=== PATIENT | female | born 1995 | race American Indian/Alaskan Native ===

== ENCOUNTER 2019-02-15 19:25 | Emergency (ER) | payer OTHER ==
--- NOTE | 2019-02-15 19:39 | Emergency Department Report ---
Blank Doc - Documentation Documentation: This is a 24-year-old female that presents with pelvic pain and vaginal discha rge. This initial assessment/diagnostic orders/clinical plan/treatment(s) is/are subject to change based on patient's health status, clinical progression and re- assessment by fellow clinical providers in the ED. Further treatment and workup at subsequent clinical providers discretion. Patient/guardians urged not to elope from the ED as their condition may be serious if not clinically assessed a nd managed. Initial orders include: 1- Patient sent to [facility] for further evaluation and treatment 2- UA 3- wet prep/GC
[2019-02-15 21:23] LABS: HCG Qualitative,Urine Negative (Negative)
[2019-02-15 21:27] LABS: Bilirubin,Urine NEG (Negative); Blood,Urine NEG (Negative); Color,Urine Yellow (Yellow); Mucus,Urine FEW /HPF; Protein,Urine <15 mg/dL mg/dL (Negative); Urobilinogen,Urine < 2.0 mg/dL (<2.0)
--- NOTE | 2019-02-15 23:26 | Emergency Department Report ---
ED Abdominal Pain HPI - General Chief Complaint: Abdominal Pain Stated Complaint: ABD AND UTERUS PAIN Time Seen by Provider: 02/15/19 19:38 Source: patient Mode of arrival: Ambulatory Limitations: No Limitations - History of Present Illness Initial Comments: This is a 24-year-old -[place] female who presents to the emergency room with pelvic pain for one week. She reports pain is sharp and intermittent. She also reports a sore to bikini line for several weeks. States she was seen at [facility] and so it would go away. It is painful and burst once but returned. She also reports a vaginal discharge. She denies urinary frequency, urgency, dysuria, nausea, vomiting, diarrhea or back pain. MD Complaint: abdominal pain Onset/Timin -: week(s) Location: suprapubic Radiation: none Migration to: no migration Severity: mild Severity scale (0 -10): 4 Quality: sharp Consistency: intermittent Improves With: nothing Worsens With: nothing Associated Symptoms: other (discharge). denies: nausea, vomiting, diarrhea, fever, chills, constipation, dysuria, hematemesis, hematochezia, melena, hematuria, anorexia, syncope - Related Data Previous Rx's Medication Instructions Recorded Last Taken Type Nitrofurantoin Gem/M-Cryst 100 mg PO Q12HR 5 Days capsule 06/15/14 06/14/14 08:00 Rx [Macrobid] 1 tab Ferrous Sulfate [Feosol 325 MG tab] 325 mg PO BID #60 tablet 01/12/15 Unknown Rx HYDROcodone/APAP 5-325 [[place] 1 each PO Q6HR PRN #30 tablet 01/12/15 Unknown Rx 5/325] Ibuprofen [Motrin] 800 mg PO Q8H PRN #30 tablet 01/12/15 Unknown Rx [id number]/Iron Fum/Folic/Docusate 1 each PO QDAY #30 tablet 01/12/15 Unknown Rx [ 19 Tablet] cephALEXin [Keflex] 500 mg PO Q8HR #15 cap 05/09/15 Unknown Rx Valacyclovir HCl [Valtrex] 1,000 mg PO BID 10 Days #40 tablet 02/16/19 Unknown Rx metroNIDAZOLE [Flagyl TAB] 500 mg PO Q12HR #14 tab 02/16/19 Unknown Rx Allergies Allergy/AdvReac Type Severity Reaction Status Date / Time No Known Allergies Allergy Verified 06/15/14 16:45 ED Review of Systems ROS: Stated complaint: ABD AND UTERUS PAIN Other details as noted in HPI Constitutional: denies: chills, fever Respiratory: denies: cough, shortness of breath, wheezing Cardiovascular: denies: chest pain, palpitations Gastrointestinal: abdominal pain. denies: nausea, diarrhea Genitourinary: discharge. denies: urgency, dysuria Musculoskeletal: denies: back pain, joint swelling, arthralgia Skin: rash Neurological: denies: headache, weakness, paresthesias Psychiatric: denies: anxiety, depression ED Past Medical Hx - Past Medical History Previous Medical History?: Yes Hx Hypertension: No Hx Congestive Heart Failure: No Hx Diabetes: No Hx Deep Vein Thrombosis: No Hx Renal Disease: No Hx Sickle Cell Disease: No Hx Seizures: No Hx Asthma: Yes Hx COPD: No Hx HIV: No - Surgical History Past Surgical History?: Yes Additional Surgical History: x 1 - Social History Smoking Status: Current Every Day Smoker Substance Use Type: Alcohol - Medications Home Medications: Home Medications Medication Instructions Recorded Confirmed Last Taken Type Nitrofurantoin Gem/M-Cryst 100 mg PO Q12HR 5 Days capsule 06/15/14 01/12/15 06/14/14 08:00 Rx [Macrobid] 1 tab Ferrous Sulfate [Feosol 325 MG tab] 325 mg PO BID #60 tablet 01/12/15 Unknown Rx HYDROcodone/APAP 5-325 [[place] 1 each PO Q6HR PRN #30 tablet 01/12/15 Unknown Rx 5/325] Ibuprofen [Motrin] 800 mg PO Q8H PRN #30 tablet 01/12/15 Unknown Rx [id number]/Iron Fum/Folic/Docusate 1 each PO QDAY #30 tablet 01/12/15 Unknown Rx [ 19 Tablet] cephALEXin [Keflex] 500 mg PO Q8HR #15 cap 05/09/15 Unknown Rx Valacyclovir HCl [Valtrex] 1,000 mg PO BID 10 Days #40 tablet 02/16/19 Unknown Rx metroNIDAZOLE [Flagyl TAB] 500 mg PO Q12HR #14 tab 02/16/19 Unknown Rx ED Physical Exam - General Limitations: No Limitations General appearance: alert, in no apparent distress, obese - Respiratory Respiratory exam: Present: normal lung sounds bilaterally. Absent: respiratory distress - Cardiovascular Cardiovascular Exam: Present: regular rate, normal rhythm. Absent: systolic murmur, diastolic murmur, rubs, gallop - GI/Abdominal GI/Abdominal exam: Present: soft, normal bowel sounds. Absent: distended, tenderness, guarding, rebound, rigid, organomegaly, mass - External exam: Present: lesions (vesicular lesions to the right side of the mons pubis and right buttocks, tenderness). Absent: erythema, swelling, lacerations, ecchymosis, bleeding Speculum exam: Present: vaginal discharge (malodorous yellowish discharge). Absent: erythema, cervical discharge, vaginal bleeding, foreign body, tissue, laceration Bi-manual exam: Present: normal bi-manual exam - Back Exam Back exam: Absent: CVA tenderness (R), CVA tenderness (L) - Neurological Exam Neurological exam: Present: alert, oriented X3 - Psychiatric Psychiatric exam: Present: normal affect, normal mood - Skin Skin exam: Present: warm, dry, intact, normal color. Absent: rash ED Course Vital Signs 02/15/19 02/16/19 19:38 01:16 Temperature 98.3 F 98 F Pulse Rate 113 H 84 Respiratory 18 18 Rate Blood Pressure 116/80 Blood Pressure 112/76 [Left] O2 Sat by Pulse 100 100 Oximetry ED Medical Decision Making - Lab Data Lab Results 02/15/19 Range/Units 21:02 Urine Color Yellow (Yellow) Urine Turbidity Slightly-cloudy (Clear) Urine pH 6.0 (5.0-7.0) Ur Specific [place] 1.021 (1.003-1.030) Urine Protein <15 mg/dl (Negative) mg/dL Urine Glucose (UA) Neg (Negative) mg/dL Urine Ketones Neg (Negative) mg/dL Urine Blood Neg (Negative) Urine Nitrite Neg (Negative) Ur Reducing Substances Not Reportable Urine Bilirubin Neg (Negative) Urine Ictotest Not Reportable Urine Urobilinogen < 2.0 (<2.0) mg/dL Ur Leukocyte Esterase Neg (Negative) Urine WBC (Auto) 1.0 (0.0-6.0) /HPF Urine RBC (Auto) 1.0 (0.0-6.0) /HPF U Epithel Cells (Auto) 8.0 (0-13.0) /HPF Urine Mucus Few /HPF Urine HCG, Qual Negative (Negative) - Medical Decision Making Patient was examined by me. Vitals are normal and patient is in no acute distress. Obtained a urinalysis, urine hCG, pelvic exam with wet prep and gonorrhea and chlamydia. Urinalysis and test is unremarkable. The wet prep is positive for clue cells, negative Trichomonas and yeast. There are vesicular lesions to mons pubis and right buttock. 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 She will be treated for herpes simplex type II and bacteria vaginitis. Start metronidazole and valacyclovir. Plan discussed with patient and agree with ER plan. Patient discharged home in stable condition. Follow up with PCP in 2-3 days. Critical care attestation.: If time is entered above; I have spent that time in minutes in the direct care of this critically ill patient, excluding procedure time. ED Disposition Clinical Impression: Herpes simplex type 2 infection, Vaginal discharge, Rash, vesicular, Bacterial vaginitis Disposition: - TO HOME OR SELFCARE Is pt being admited?: No Condition: Stable Instructions: Bacterial Vaginosis (ED), Genital Herpes Simplex (ED), Abdominal Pain (ED) Additional Instructions: Complete full course of antibiotics as prescribed. Avoid drinking alcohol while taking antibiotics for 24 hours after completion. Follow up with the primary care doctor I will have provided in the referrals as below. Prescriptions: metroNIDAZOLE [Flagyl TAB] 500 mg PO Q12HR #14 tab Valacyclovir HCl [Valtrex] 1,000 mg PO BID 10 Days #40 tablet Referrals: DENAE TEAGUE MD [Primary Care Provider] - 3-5 Days Forms: STI Treatment and Prevention, Work/School Release Form(ED) Time of Disposition: 00:58
[2019-02-16 01:17] VITALS: BP 112/76
== END 2019-02-16 01:19 | disposition home or self-care (01) ==
LOC: ED 19:25
DX: B00.9 Herpesviral infection, unspecified (principal); N76.0 Acute vaginitis; J45.909 Unspecified asthma, uncomplicated; F17.200 Nicotine dependence, unspecified, uncomplicated; Z79.899 Other long term (current) drug therapy
CPT/HCPCS: 81001; 81025; 87210; 87591; 99284

== ENCOUNTER 2019-06-08 21:43 | Emergency (ER) | payer OTHER ==
[2019-06-08 22:04] VITALS: BP 117/65
--- NOTE | 2019-06-08 22:08 | Emergency Department Report ---
Blank Doc - Documentation Documentation: 24-year-old female that presents with pelvic pain and breast soreness. This initial assessment/diagnostic orders/clinical plan/treatment(s) is/are subject to change based on patient's health status, clinical progression and re- assessment by fellow clinical providers in the ED. Further treatment and workup at subsequent clinical providers discretion. Patient/guardians urged not to elope from the ED as their condition may be serious if not clinically assessed and managed. Initial orders include: 1- Patient sent to [facility] for further evaluation and treatment 2- labs 3- UA
[2019-06-08 22:53] LABS: Bilirubin,Urine NEG (Negative); Blood,Urine NEG (Negative); Color,Urine Yellow (Yellow); Mucus,Urine FEW /HPF; Protein,Urine <15 mg/dL mg/dL (Negative); RBC,Urine < 1.0 /HPF (0.0-6.0)
[2019-06-08 22:53] LABS: Basophils % (Auto) 0.5 % (0.0-1.8); Eosinophils # (Auto) 0.3 K/mm3 (0.0-0.4); Eosinophils % (Auto) 3.3 % (0.0-4.3); Hematocrit 40.2 % (30.3-42.9); Hemoglobin 13.2 gm/dl (10.1-14.3); Lymphocytes # (Auto) 2.8 K/mm3 (1.2-5.4); Lymphocytes % (Auto) 34.3 % (13.4-35.0); Mean Corpuscular HGB Conc 33 % (30-34); Mean Corpuscular Volume 86 fl (79-97); Monocytes # (Auto) 0.6 K/mm3 (0.0-0.8); Platelet Count 276 K/mm3 (140-440); Red Blood Count 4.66 M/mm3 (3.65-5.03); Red Cell Distribution Width 13.4 % (13.2-15.2)
[2019-06-08 23:10] LABS: BUN/Creatinine Ratio 11; Blood Urea Nitrogen 8 mg/dL (7-17); Calcium 8.9 mg/dL (8.4-10.2); Hemolysis Index 8
--- NOTE | 2019-06-08 23:28 | Emergency Department Report ---
HPI - General Chief Complaint: Urogenital-Female Time Seen by Provider: 06/08/19 22:07 - HPI HPI: 24-year-old -[place] female presents to the emergency department with a complaint of a one-week history of some lower abdominal pain, lower back sore ness and breast soreness. The patient thinks that she could be as she is about one week past due for her menstrual cycle and her last menstrual cycle was 05/03/19. She also says that she pinched her nipples and thought that there was some . She did have a negative home test about 5 days ago. She has not taken anything for her symptoms prior to presentation. She denies any fever, dysuria, nausea, vomiting, vaginal discharge or vaginal bleeding. ED Past Medical Hx - Past Medical History Previous Medical History?: Yes Hx Hypertension: No Hx Congestive Heart Failure: No Hx Diabetes: No Hx Deep Vein Thrombosis: No Hx Renal Disease: No Hx Sickle Cell Disease: No Hx Seizures: No Hx Asthma: Yes Hx COPD: No Hx HIV: No - Surgical History Past Surgical History?: Yes Additional Surgical History: x 1 - Social History Smoking Status: Never Smoker Substance Use Type: Alcohol - Medications Home Medications: Home Medications Medication Instructions Recorded Confirmed Last Taken Type Nitrofurantoin [place]/M-Cryst 100 mg PO Q12HR 5 Days capsule 06/15/14 01/12/15 06/14/14 08:00 Rx [Macrobid] 1 tab Ferrous Sulfate [Feosol 325 MG tab] 325 mg PO BID #60 tablet 01/12/15 Unknown Rx HYDROcodone/APAP 5-325 [[place] 1 each PO Q6HR PRN #30 tablet 01/12/15 Unknown Rx 5/325] Ibuprofen [Motrin] 800 mg PO Q8H PRN #30 tablet 01/12/15 Unknown Rx [id number]/Iron Fum/Folic/Docusate 1 each PO QDAY #30 tablet 01/12/15 Unknown Rx [ 19 Tablet] cephALEXin [Keflex] 500 mg PO Q8HR #15 cap 05/09/15 Unknown Rx Valacyclovir HCl [Valtrex] 1,000 mg PO BID 10 Days #40 tablet 02/16/19 Unknown Rx metroNIDAZOLE [Flagyl TAB] 500 mg PO Q12HR #14 tab 02/16/19 Unknown Rx ED Review of Systems ROS: Stated complaint: ABDOMINAL PAIN,BREAST SORE,POSS PREG Other details as noted in HPI Comment: All other systems reviewed and negative Constitutional: denies: chills, fever Respiratory: denies: shortness of breath Cardiovascular: denies: chest pain Gastrointestinal: abdominal pain. denies: vomiting Genitourinary: abnormal menses. denies: dysuria, discharge Musculoskeletal: back pain. denies: arthralgia Skin: denies: rash, lesions Neurological: denies: headache, weakness Physical Exam - Physical Exam Vital Signs: Vital Signs 06/08/19 06/08/19 21:49 22:07 Temperature 98.3 F 98.3 F Pulse Rate 84 84 Respiratory 18 18 Rate Blood Pressure 117/65 117/65 O2 Sat by Pulse 100 100 Oximetry Physical Exam: GENERAL: The patient is well-developed well-nourished. HENT: Normocephalic. Atraumatic. Patient has moist mucous membranes. EYES: Extraocular motions are intact. NECK: Supple. Trachea is midline. CHEST/LUNGS: Clear to auscultation. There is no respiratory distress noted. HEART/CARDIOVASCULAR: Regular. There is no tachycardia. There is no murmur. ABDOMEN: Abdomen is soft. Mild lower abdominal tenderness to palpation. Patient has normal bowel sounds. There is no abdominal distention. SKIN: Skin is warm and dry. NEURO: The patient is awake, alert, and oriented. The patient is cooperative. The patient has no focal neurologic deficits. Normal speech. MUSCULOSKELETAL: There is no tenderness or deformity. There is no limitation range of motion. There is no evidence of acute injury. BREASTS: There was some tenderness to palpation to the superior portion of the breasts, bilaterally. There is also some tenderness around the nipples. There was no erythema, fluctuance, obvious mass. ED Course Vital Signs 06/08/19 06/08/19 21:49 22:07 Temperature 98.3 F 98.3 F Pulse Rate 84 84 Respiratory 18 18 Rate Blood Pressure 117/65 117/65 O2 Sat by Pulse 100 100 Oximetry - Reevaluation(s) Reevaluation #1: 06/09/19 00:16 Breast examination was done with nurse Pineda at bedside as a elevator operator service. ED Medical Decision Making - Lab Data Result diagrams: 06/08/19 22:30 06/08/19 22:30 - Radiology Data Radiology results: image reviewed interpreted by me: Abdominal x-ray shows nonspecific nonobstructive bowel gas - Medical Decision Making This patient presents to the emergency department with complaint of some lower abdominal pain, lower back pain, breast soreness and is one week late for her period. Despite a negative home test a few days ago, I believe the patient had a high suspicion that she was . The serum qualitative test was negative. The rest of her blood work was also unremarkable. Abdominal x-ray shows nonspecific nonobstructive bowel gas. A breast examination was done with the nurse at bedside as a elevator operator service and I did not see any signs of mastitis, cellulitis, obvious abscess or mass. Her vital signs stable throughout her ED course. The patient has a primary care and [facility] for follow-up. She was given a referral for a breast surgeon and we discussed the need for her to get a mammogram done. She will return to the ER with any worsening of her symptoms or any acute distress. - Differential Diagnosis , UTI, colitis Critical Care Time: No Critical care attestation.: If time is entered above; I have spent that time in minutes in the direct care of this critically ill patient, excluding procedure time. ED Disposition Clinical Impression: Menstrual period late, Soreness breast Abdominal pain Qualifiers: Abdominal location: lower abdomen, unspecified Qualified Code(s): R10.30 - Lower abdominal pain, unspecified Back pain Qualifiers: Back pain location: low back pain Chronicity: unspecified Back pain laterality: bilateral Sciatica presence: without sciatica Qualified Code(s): M54.5 - Low back pain Disposition: DC- TO HOME OR SELFCARE Is pt being admited?: No Condition: Stable Instructions: Abdominal Pain (ED), Back Pain (ED) Additional Instructions: Please follow-up with your primary care physician and [facility] in the next few days. Return to the emergency Department with any worsening of your symptoms or any acute distress. I have also given you a referral for a local breast surgeon , Dr. Reno, to follow up regarding your breast pains. Referrals: ZHEN RIDDLE MD [Primary Care Provider] - 3-5 Days SHAMIKA RENO MD [Staff Physician] - 3-5 Days Time of Disposition: 00:16
--- NOTE | 2019-06-08 23:56 | XRay Report ---
ABDOMEN 2 VIEW(S) INDICATION / CLINICAL INFORMATION: abd pain. COMPARISON: None available. FINDINGS: TUBES / LINES: None. BOWEL GAS PATTERN: No significant abnormality. FREE AIR / EXTRALUMINAL GAS: None seen. ADDITIONAL FINDINGS: No significant additional findings. IMPRESSION: 1. No significant abnormality. Signer Name: Enrique Conteh MD Signed: 06/08/2019 11:52 PM Workstation Name: [id number]
== END 2019-06-09 00:24 | disposition home or self-care (01) ==
LOC: ED 21:43
DX: N92.6 Irregular menstruation, unspecified (principal); J45.909 Unspecified asthma, uncomplicated; Z79.899 Other long term (current) drug therapy
CPT/HCPCS: 36415; 74019; 80048; 81001; 84703; 85025